=== PATIENT | female | born 1960 | race Two or more races ===

== ENCOUNTER 2018-11-03 23:06 | Observation (INO) | payer BC, OTHER ==
[~2018-11-03] VITALS: Ht 157.5 cm; Wt 69.6 kg
[2018-11-03] MEDS ORDERED: CHRO1TAB6 PO (23:30)
[2018-11-03] MEDS ORDERED: [UNRECOGNIZED DRUG - REMARK] (23:30)
--- NOTE | 2018-11-03 23:30 | NUR ---
PT GEORGIAN SPEAKING ONLY HERE WITH FRIEND WHO IS ABLE TO INTERPRET, NOTES PT BEGAN HAVING LOWER ABD PAIN YESTERDAY THAT HAS BEEN CONSTANT, THEN TODAY DEVELOPED L SHOULDER/ARM PAIN APPROX 1700, TONIGHT SHE NOTED SWELLING R SIDE OF NECK. DENIES MEDICAL HX, STARTING TAKING OTC WT LOSS MEDS 2 DAYS AGO. CURRENTLY CHANGING MD'S. NSR MONITOR WITHOUT MD CANDICE TO BEDSIDE
[2018-11-04 00:05] LABS: BASOPHILS # (AUTO) 0.09 x10^3/uL (0-0.1); BASOPHILS % (AUTO) 1 % (0-1); EOSINOPHILS # (AUTO) 0.16 x10^3/uL (0-0.4); EOSINOPHILS % (AUTO) 1 % (1-7); LYMPHOCYTES # (AUTO) 2.56 x10^3/uL (1-3.4); LYMPHOCYTES % (AUTO) 21 % (22-44); MD NO; MEAN CORPUSCULAR HEMOGLOBIN 32.5 pg (27.0-34.8); MEAN CORPUSCULAR HGB CONC 33.5 g/dL (32.4-35.8); MEAN PLATELET VOLUME 9.7 fL (7.4-10.4); MONOCYTES # (AUTO) 0.77 x10^3/uL (0.2-0.8); MONOCYTES % (AUTO) 6 % (2-9); NEUTROPHILS # (AUTO) 8.68 x10^3/uL (1.8-6.8); NEUTROPHILS % (AUTO) 71 % (42-75); PLATELET COUNT 257 x10^3/uL (130-400); RED BLOOD COUNT 4.51 x10^6/uL (3.82-5.3); RED CELL DISTRIBUTION WIDTH 12.3 % (9.6-15.2)
[2018-11-04 00:15] LABS: INTERNATIONAL NORMALIZED RATIO 0.94 (0.93-1.1); PROTHROMBIN TIME 9.9 Seconds (9.6-11.5)
[2018-11-04 00:18] LABS: ALANINE AMINOTRANSFERASE 38 U/L (12-78); ALBUMIN 3.9 g/dL (3.4-5.0); ANION GAP 8 mmol/L (5-15); CALCIUM 9.7 mg/dL (8.5-10.1); CHLORIDE 109 mmol/L (98-107); CREATININE 0.82 mg/dL (0.55-1.02)
[2018-11-04 00:23] LABS: ALKALINE PHOSPHATASE 141 U/L (45-117); BILIRUBIN,TOTAL 0.3 mg/dL (0.2-1.0); TOTAL PROTEIN 7.4 g/dL (6.4-8.2); TROPONIN I < 0.015 ng/mL (0.000-0.045)
--- NOTE | 2018-11-04 00:50 | NUR ---
PT ASSISTED TO BATHROOM VIA WHEELCHAIR WITH NURSE AND FAMILY MEMBER.
--- NOTE | 2018-11-04 01:10 | NUR ---
URINE SPECIMEN WALKED TO LAB AT THIS TIME
[2018-11-04 01:28] LABS: MICROSCOPIC AUTO
[2018-11-04 01:31] LABS: CULTURE INDICATED? NO
--- NOTE | 2018-11-04 02:07 | NUR ---
PT RETURN FROM CT AT THIS TIME. TOLERATE WELL, DAUGHTER AT BEDSIDE
--- NOTE | 2018-11-04 02:51 | NUR ---
resting quietly daughter at bedside, await MD for further eval. Plan thus far is for admission
[2018-11-04] MEDS ORDERED: NITROGLYCERIN SINGLE TAB 0.4 MG SL ONE ×2 (03:08→03:31)
[2018-11-04] MEDS: NITROGLYCERIN 0.4 MG BOTTLE (25 TABS) SL PRN ×3 (03:12→03:36)
[2018-11-04] MEDS ORDERED: SODIUM CHLORIDE 0.9% 1,000 ML IV SCH (03:33)
[2018-11-04] MEDS ORDERED: ONDANSETRON 2MG/ML, 2ML IVPush PRN (04:00)
[2018-11-04] MEDS ORDERED: ENOXAPARIN 40 MG/0.4 ML SQ SCH (04:00)
[2018-11-04] MEDS ORDERED: hydrALAzine 20 MG/ML, 1ML IVPush PRN (04:00)
[2018-11-04] MEDS ORDERED: ACETAMINOPHEN 325 MG TABLET PO PRN (04:00)
[2018-11-04 04:03] LABS: TROPONIN I < 0.015 ng/mL (0.000-0.045)
[2018-11-04 04:29] VITALS: BP 169/82
[2018-11-04] MEDS ORDERED: OMNIPAQUE 350 MG/ML, 100ML BOTTLE ONE (05:35)
[2018-11-04 07:38] VITALS: BP 138/79
[2018-11-04] MEDS ORDERED: LISINOPRIL 5 MG TABLET PO SCH (09:00)
[2018-11-04 10:40] LABS: TROPONIN I < 0.015 ng/mL (0.000-0.045)
[2018-11-04] MEDS ORDERED: REGADENOSON 0.4 MG/5 ML SYRINGE ONE (10:59)
[2018-11-04 12:42] VITALS: BP 139/77
[2018-11-04] MEDS ORDERED: CYCLOBENZAPRINE 10 MG TABLET PO ONE (13:00)
[2018-11-04] MEDS ORDERED: BUTALB/APAP/CAFFEINE 50MG/325MG/40MG PO ONE (16:00)
[2018-11-04] MEDS ORDERED: LISI5TAB7 PO (16:59)
== END 2018-11-04 20:00 | disposition home or self-care (01) ==
LOC: ED 23:46 → INTOOBSV 11-04 03:07 → EDIP 11-04 03:07 → 5SO 11-04 04:24
PROVIDERS: ADMIT Family Medicine; ATTEND Family Medicine
DX: R07.89 Other chest pain (principal); I10 Essential (primary) hypertension; M54.5 Low back pain; M25.511 Pain in right shoulder; M25.512 Pain in left shoulder; E87.2 Acidosis; R31.29 Other microscopic hematuria; K57.30 Diverticulosis of large intestine without perforation or abscess without bleeding; Z90.710 Acquired absence of both cervix and uterus
CPT/HCPCS: 36415; 71045; 74177; 78452; 80053; 81001; 83605; 83690; 83880; 84439; 84443; 84484; 85025; 85610; 93005; 93017; 96372; 99284; A9502; C9898; G0378; J1650; J2785; J7030; Q9967; 96360